=== PATIENT | male | born 1985 | race Asian ===

== ENCOUNTER 2018-03-15 16:42 | Emergency (ER) | payer OTHER ==
[~2018-03-15] VITALS: Ht 177.8 cm; Wt 68.0 kg
[2018-03-15 16:45] VITALS: BP 128/79
--- NOTE | 2018-03-15 16:48 | NUR ---
PATIENT IS A 32 Y/O MALE WHO PRESENTS TO THE ED C/O TOOTHACHE. PT STATES THAT IT WAS CHIPPED. PT REPORTS 7/10 ACHING L UPPER TOOTH PAIN THAT DOES NOT RADIATE. PT DENIES CP, SOB, N/V/D. PT AWAKE AND ALERT, RR EVEN/UNLABORED. PT REPOSITIONED FOR COMFORT, BED IN LOWEST POSITION. ER MD DR. TEJADA NOTIFIED. WILL CONTINUE TO MONITOR.
[2018-03-15 17:06] VITALS: BP 119/85
--- NOTE | 2018-03-15 17:06 | NUR ---
Patient discharged with v/s stable. Written and verbal after care instructions given and explained. Patient alert, oriented and verbalized understanding of instructions. Ambulatory with steady gait. All questions addressed prior to discharge. ID band removed. Patient advised to follow up with PMD. Rx of AMOXICILLIN 875MG AND IBUPROFEN 800MG given. Patient educated on indication of medication including possible reaction and side effects. Opportunity to ask questions provided and answered.
== END 2018-03-15 17:06 | disposition home or self-care (01) ==
LOC: MED 16:42
DX: K04.7 Periapical abscess without sinus (principal); F17.200 Nicotine dependence, unspecified, uncomplicated
CPT/HCPCS: 99283